=== PATIENT | female | born 2000 | race Caucasian/White ===

== ENCOUNTER → 2021-06-24 | Outpatient (CLI) | payer OTHER ==
--- NOTE | 2021-06-24 16:14 | US ---
EXAMINATION TYPE: Transabdominal DATE OF EXAM: 06/24/2021 4:00 PM COMPARISON: NONE CLINICAL HISTORY: Z36.89 ENCOUNTER FOR OTHER SPECIFIED SCR. Positive beta-hCG test. EXAM PERFORMED: Transabdominal (TA) EXAM MEASUREMENTS: GESTATIONAL AGE / DATING Physician Established: Not yet established Dates by LMP: 03/18/2021 (14 weeks/0 days) EDC: 12/23/2021 Dates by First Scan: No previous this is first scan Dates by Current Scan for: ( 7 weeks/1 days) EDC: 02/09/2022 MATERNAL ANATOMY Uterus: 10.2 x 5.9 x 7.7 cm Right Ovary: 3.4 x 2.5 x 3.2 cm Left Ovary: not seen Post CDS / Adnexa: wnl Presence of free fluid: none Presence of corpus luteal cyst: cyst right ovary measures 2.6 x 2.0 x 2.0 cm. GESTATION / SURVEY CRL: 0.9 cm (7 weeks/1 days) Yolk Sac (normal less than 6mm): 0.3 cm Heart Rate: 138 bpm Rhythm: Normal IUP: Viable IUP Date of LMP: does not correlate. Beta HcG (if available): not available Single live intrauterine gestation is seen as gestational sac, yolk sac, and pole are present. No free fluid in pelvic cul-de-sac. Right ovary is identified. Left ovary is not clearly seen. Within the right ovary there is 2.6 cm per ipheral thin-walled cyst could reflect corpus luteal cyst. No suspicious left-sided adnexal masses. IMPRESSION: Single live intrauterine gestation is confirmed. Mean crown-rump length is 0.9 cm corresp onding to a 7 week 1 day old fetus.
== END | disposition home or self-care (01) ==
LOC: RADUSWWP 15:44
PROVIDERS: ATTEND Obstetrics & Gynecology
DX: Z36.89 Encounter for other specified antenatal screening (principal); Z3A.01 Less than 8 weeks gestation of pregnancy
CPT/HCPCS: 76801